=== PATIENT | female | born 1995 | race Caucasian/White ===

== ENCOUNTER 2019-07-16 17:20 | Outpatient (CLI) | payer OTHER ==
[~2019-07-16 17:20] MED LIST: OBSTETRIX DHA1 EACH
== END 2019-07-17 15:02 | disposition home or self-care (01) ==
LOC: OBS/DEL 17:20
DX: O16.2 Unspecified maternal hypertension, second trimester (principal)

== ENCOUNTER 2019-10-15 12:18 | Inpatient (IN) | payer OTHER ==
[~2019-10-15] VITALS: Ht 170.2 cm; Wt 90.7 kg
== END 2019-10-17 16:38 | disposition home or self-care (01) | DRG 807 ==
LOC: OB/GYN 12:18 → LDR 12:18 → OB/GYN 22:46
PROVIDERS: ADMIT Specialist
PROC: 10E0XZZ Delivery of Products of Conception, External Approach (ICD-10-PCS; principal; 2019-10-15)
PROC: 0KQM0ZZ Repair Perineum Muscle, Open Approach (ICD-10-PCS; 2019-10-15)
PROC: 3E033VJ Introduction of Other Hormone into Peripheral Vein, Percutaneous Approach (ICD-10-PCS; 2019-10-15)
PROC: 4A1HXCZ Monitoring of Products of Conception, Cardiac Rate, External Approach (ICD-10-PCS; 2019-10-15)
DX: O70.1 Second degree perineal laceration during delivery (principal); Z37.0 Single live birth; Z3A.38 38 weeks gestation of pregnancy